=== PATIENT | male | born 1995 | race Hispanic/Latino ===

== ENCOUNTER 2019-09-17 09:22 | Emergency (ER) | payer SELFPAY ==
--- NOTE | 2019-09-17 09:50 | ER ---
Nurse's Notes [facility] Name: Gene Ferraro Age: 24 yrs Sex: Male : 1995 Arrival Date: 09/17/2019 Time: 09:25 Bed 24 Private MD: Diagnosis: Epistaxis Presentation: 09/17 09:28 Presenting complaint: Patient states: was at work nose started bleeding and his heart iw rate was high and they told him to come see a doctor. Transition of care: patient was not received from another setting of care. Onset of symptoms was September 17, 2019. Risk Assessment: Do you want to hurt yourself or someone else? Patient reports no desire to harm self or others. Initial Sepsis Screen: Does the patient meet any 2 criteria? No. Patient's initial sepsis screen is negative. Does the patient have a suspected source of infection? No. Patient's initial sepsis screen is negative. Care prior to arrival: None. 09:28 Method Of Arrival: Ambulatory iw 09:28 Acuity: IZA 3 iw Historical: - Allergies: 09:29 No Known Allergies; iw - Home Meds: : None [Active]; iw - PMHx: 09: None; iw - PSHx: 09:29 right ankle; left knee; iw - Immunization history:: Adult Immunizations not up to date. - Social history:: Smoking status: Smoking status: Patient uses tobacco products, smokes one pack cigarettes per day. - Ebola Screening: : Patient negative for fever greater than or equal to 101.5 degrees Fahrenheit, and additional compatible Ebola Virus Disease symptoms Patient denies exposure to infectious person Patient denies travel to an Ebola-affected area in the 21 days before illness onset No symptoms or risks identified at this time. Screenin:47 Abuse screen: Denies threats or abuse. Nutritional screening: No deficits noted. em Tuberculosis screening: No symptoms or risk factors identified. Fall Risk None identified. Assessment: 10:05 General: Appears in no apparent distress. Behavior is calm, cooperative. Pain: Denies iw pain. Neuro: Level of Consciousness is awake, alert, obeys commands, Oriented to person, place, time, situation, Moves all extremities. Full function. Cardiovascular: Patient's skin is warm and dry. Respiratory: Respiratory effort is even, unlabored, Respiratory pattern is regular. GI: No signs and/or symptoms were reported involving the gastrointestinal system. Derm: Skin is intact, is healthy with good turgor. Musculoskeletal: Range of motion: intact in all extremities. Vital Signs: 09:29 BP 125 / 69; Pulse 70; Resp 16; Temp 98.2; Pulse Ox 99% on R/A; Weight 107.95 kg; iw Height 5 ft. 11 in. (180.34 cm); 09: Body Mass Index 33.19 (107.95 kg, 180.34 cm) iw ED Course: 09:25 Patient arrived in ED. mr 09:26 Yefri Mills [facility]-C [facility]. la1 09:26 Usama Longoria MD is Attending Physician. la1 :29 Triage completed. iw 09:34 Jose Cruz Mixon LVN is Primary Nurse. em 10:05 No provider procedures requiring assistance completed. Patient did not have IV access iw during this emergency room visit. 10:06 Arm band placed on. iw 10:06 Patient has correct armband on for positive identification. iw Administered Medications: :58 Drug: Motrin 800 mg Route: PO; em Outcome: 09:47 Discharge ordered by . la1 10:05 Discharged to home ambulatory. iw 10:06 Condition: good iw 10:06 Discharge instructions given to patient, Instructed on discharge instructions, follow up and referral plans. Demonstrated understanding of instructions, follow-up care. 10:06 Patient left the ED. iw Signatures: Adilia Chang mr MixonJose Cruz LVN LVN em Muna Valdez, RN RN iw Yefri Mills FNP-C FNP-[facility]
--- NOTE | 2019-09-17 09:51 | EDPHYS ---
Physician Documentation [facility] Name: Gene Ferraro Age: 24 yrs Sex: Male : 1995 Arrival Date: 09/17/2019 Time: 09:25 Bed 24 Private MD: ED Physician Usama Longoria HPI: 09/17 09:43 This 24 yrs old Male presents to ER via Ambulatory with complaints of nose la1 bleed. 09:43 The patient presents with a nose bleed, occurred dry air, that is intermittent moderate la1 amount stopped /dried blood noted. causative factors include: previous HX of nosebleeds, and the bleeding resolved prior to arrival. Onset: The symptoms/episode began/occurred this morning. Modifying factors: The symptoms are alleviated by pressure. Associated signs and symptoms: Loss of consciousness: the patient experienced no loss of consciousness, Pertinent negatives: blurred vision, chest pain, fever, nausea, vertigo. Severity of symptoms: At their worst the symptoms were very mild. The patient has experienced similar episodes in the past. Pt reports he was at work and got a nose bleed, HR was high on site so they sent him in for evaluation, bleeding is stopped at this time. . Historical: - Allergies: 09:29 No Known Allergies; iw - Home Meds: 09:29 None [Active]; iw - PMHx: 09:29 None; iw - PSHx: 09:29 right ankle; left knee; iw - Immunization history:: Adult Immunizations not up to date. - Social history:: Smoking status: Smoking status: Patient uses tobacco products, smokes one pack cigarettes per day. - Ebola Screening: : Patient negative for fever greater than or equal to 101.5 degrees Fahrenheit, and additional compatible Ebola Virus Disease symptoms Patient denies exposure to infectious person Patient denies travel to an Ebola-affected area in the 21 days before illness onset No symptoms or risks identified at this time. ROS: 09:44 Constitutional: Negative for fever, chills, and weight loss, Eyes: Negative for injury, la1 pain, redness, and discharge. 09:44 Neck: Negative for injury, pain, and swelling, Cardiovascular: Negative for chest pain, palpitations, and edema, Respiratory: Negative for shortness of breath, cough, wheezing, and pleuritic chest pain, Abdomen/GI: Negative for abdominal pain, nausea, vomiting, diarrhea, and constipation, Back: Negative for injury and pain, MS/Extremity: Negative for injury and deformity, Neuro: Negative for headache, weakness, numbness, tingling, and seizure. 09:44 ENT: Positive for nose bleed. Exam: 09:45 Constitutional: This is a well developed, well nourished patient who is awake, alert, la1 and in no acute distress. Head/Face: Normocephalic, atraumatic. Eyes: Pupils equal round and reactive to light, extra-ocular motions intact. Lids and lashes normal. Conjunctiva and sclera are non-icteric and not injected. Cornea within normal limits. Periorbital areas with no swelling, redness, or edema. 09:45 Neck: Trachea midline, no thyromegaly or masses palpated, and no cervical lymphadenopathy. Supple, full range of motion without nuchal rigidity, or vertebral point tenderness. No Meningismus. Chest/axilla: Normal chest wall appearance and motion. Nontender with no deformity. No lesions are appreciated. Cardiovascular: Regular rate and rhythm with a normal S1 and S2. No gallops, murmurs, or rubs. Normal PMI, no JVD. No pulse deficits. Respiratory: Lungs have equal breath sounds bilaterally, clear to auscultation No rales, rhonchi or wheezes noted. No increased work of breathing, no retractions or nasal flaring. Neuro: Awake and alert, GCS 15, oriented to person, place, time, and situation.. Normal gait. 09:45 ENT: Nose: Nasal mucosa: normal, Dried blood. intact, clotted blood, in left nare, a foreign body, is not appreciated. Vital Signs: 09:29 BP 125 / 69; Pulse 70; Resp 16; Temp 98.2; Pulse Ox 99% on R/A; Weight 107.95 kg; iw Height 5 ft. 11 in. (180.34 cm); 09:29 Body Mass Index 33.19 (107.95 kg, 180.34 cm) iw MDM: 09:30 Patient medically screened. la1 09:45 Data reviewed: vital signs, nurses notes, and as a result, I will discharge patient. la1 Data interpreted: Pulse oximetry: on room air is 99 %. Interpretation: normal. Counseling: I had a detailed discussion with the patient and/or guardian regarding: the historical points, exam findings, and any diagnostic results supporting the discharge/admit diagnosis, the need for outpatient follow up, an ENT specialist, to return to the emergency department if symptoms worsen or persist or if there are any questions or concerns that arise at home. Special discussion: Based on the history and exam findings, there is no indication for further emergent testing or inpatient evaluation. I discussed with the patient/guardian the need to see the ENT specialist for further evaluation of the symptoms. ED course: pt nose no longer bleeding, HR in the 70s, pt with no additional complaints, has not has nose bleed in years but does have history, bleeding was easily controlled with pressure. Administered Medications: 09:58 Drug: Motrin 800 mg Route: PO; em Disposition: 11:30 Co-signature as Attending Physician, Usama Longoria MD I agree with the assessment and kdr plan of care. Disposition: 09/17/19 09:47 Discharged to Home. Impression: Epistaxis. - Condition is Stable. - Discharge Instructions: Nosebleed, Adult, Nosebleed, [id number]. - Work release form, Medication Reconciliation Form, Thank You Letter form. - Follow up: Private Physician; When: 2 - 3 days; Reason: Recheck today's complaints, Re-evaluation by your physician. - Problem is new. - Symptoms are resolved. Signatures: Usama Longoria MD MD [facility] Jose Cruz Mixon, CLEATER CLEATER em Muna Valdez, ANNALEE RN iw Yefri Mills, PROGRAMMER DEVELOPER-C PROGRAMMER DEVELOPER-Cla1 Corrections: (The following items were deleted from the chart) 10:06 09:47 09/17/2019 09:47 Discharged to Home. Impression: Epistaxis. Condition is Stable. iw Forms are Medication Reconciliation Form, Thank You Letter, Antibiotic Education, Prescription Opioid Use. Follow up: Private Physician; When: 2 - 3 days; Reason: Recheck today's complaints, Re-evaluation by your physician. Problem is new. Symptoms are resolved. la1
[2019-09-17] MEDS ORDERED: IBUPROFEN 400 MG TAB ONE (09:56)
[2019-09-17 17:16] VITALS: BP 125/69; TEMP 98.2; O2SAT 99
== END 2019-09-17 10:06 | disposition home or self-care (01) ==
LOC: ER 09:22
DX: R04.0 Epistaxis (principal); F17.210 Nicotine dependence, cigarettes, uncomplicated
CPT/HCPCS: 99283

== ENCOUNTER 2019-11-07 10:42 | Emergency (ER) | payer SELFPAY ==
[2019-11-07] MEDS ORDERED: TETANUS & DIPHTHERIA TOX,ADULT 0.5 ML VIAL ONE (11:54)
--- NOTE | 2019-11-07 12:26 | RAD REPORT ---
EXAM DESCRIPTION: RAD - Hand Right 3 View - 11/07/2019 12:15 pm CLINICAL HISTORY: Right hand pain FINDINGS: No fracture or dislocation is seen. No bone or joint abnormality
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
[2019-11-07 13:28] VITALS: BP 149/78; TEMP 97.7; O2SAT 100
== END 2019-11-07 13:20 | disposition home or self-care (01) ==
LOC: ER 10:42
DX: L03.113 Cellulitis of right upper limb (principal); F17.210 Nicotine dependence, cigarettes, uncomplicated; Z23 Encounter for immunization
CPT/HCPCS: 90471; 90714; 99283